=== PATIENT | male | born 1985 | race African-American/Black ===

== ENCOUNTER 2018-05-04 09:29 | Emergency (ER) | payer OTHER ==
[~2018-05-04] VITALS: Ht 172.7 cm; Wt 54.4 kg
[~2018-05-04 09:29] MED LIST: NAPROSYN500 MG PO; NYSTATIN100000 UNI SW&SWALLOW; ONDANSETRON HCL4 M2 PO; ZPAK PO
[2018-05-04 09:31] VITALS: BP 132/97
[2018-05-04] MEDS ORDERED: PREDNISONE 20 M20 MG PO (09:51)
[2018-05-04] MEDS ORDERED: MOBIC7.5 MG PO (09:52)
[2018-05-04] MEDS ORDERED: NORCO 5-325 TA1 EACH PO (09:53)
== END 2018-05-04 10:25 | disposition home or self-care (01) ==
LOC: ER 09:29
DX: T20.15XA Burn of first degree of scalp [any part], initial encounter (principal); X58.XXXA Exposure to other specified factors, initial encounter; Y93.89 Activity, other specified; Y92.89 Other specified places as the place of occurrence of the external cause; Y99.8 Other external cause status

== ENCOUNTER 2018-05-12 10:40 | Emergency (ER) | payer OTHER ==
[~2018-05-12] VITALS: Ht 172.7 cm; Wt 59.9 kg
[~2018-05-12 10:40] MED LIST changes: +MOBIC7.5 MG PO; +NORCO 5-325 TA1 EACH PO; +PREDNISONE 20 M20 MG PO
[2018-05-12] MEDS ORDERED: MEDROL DOSPAK21 TA1 PO (12:27)
== END 2018-05-12 12:45 | disposition home or self-care (01) ==
LOC: ER 10:40
DX: L27.0 Generalized skin eruption due to drugs and medicaments taken internally (principal); Z21 Asymptomatic human immunodeficiency virus [HIV] infection status